=== PATIENT | male | born 1995 | race Caucasian/White ===

== ENCOUNTER 2016-08-28 00:14 | Emergency (ER) | payer OTHER ==
[2016-08-28 03:01] VITALS: BP 118/88
== END 2016-08-28 03:01 | disposition home or self-care (01) ==
LOC: ED 00:14
DX: L50.9 Urticaria, unspecified (principal)
CPT/HCPCS: J0171; J1200; J2930; J3490; J7030

== ENCOUNTER 2016-08-28 12:37 | Emergency (ER) | payer OTHER ==
[~2016-08-28] VITALS: Ht 167.6 cm; Wt 101.2 kg
[2016-08-28 14:17] VITALS: BP 115/62
== END 2016-08-28 14:18 | disposition home or self-care (01) ==
LOC: ED 12:37
DX: L50.9 Urticaria, unspecified (principal); Z79.899 Other long term (current) drug therapy
CPT/HCPCS: J1200